=== PATIENT | male | born 1990 | race Caucasian/White ===

== ENCOUNTER 2021-07-07 10:21 | Outpatient (CLI) | payer OTHER | END 2021-07-07 10:22 | disposition home or self-care (01) | LOC: DTY/OP 10:21 | PROVIDERS: ATTEND Family Medicine | DX: R81 Glycosuria (principal) | CPT/HCPCS: 97802 ==

== ENCOUNTER 2022-12-14 07:40 | Outpatient (CLI) | payer BC | END 2022-12-14 07:41 | disposition home or self-care (01) | LOC: SCSMRI 07:40 | PROVIDERS: ATTEND Family Medicine | DX: M51.16 Intervertebral disc disorders with radiculopathy, lumbar region (principal); M51.27 Other intervertebral disc displacement, lumbosacral region | CPT/HCPCS: 72158 ==